=== PATIENT | female | born 1990 | race American Indian/Alaskan Native ===

== ENCOUNTER 2018-03-19 12:37 | Emergency (ER) | payer SELFPAY ==
[2018-03-19 13:44] VITALS: BP 127/79
[2018-03-19 16:50] LABS: HCG Qualitative,Urine Negative (Negative)
== END 2018-03-19 15:00 | disposition left against medical advice (07) ==
LOC: ED 12:37
DX: Z04.1 Encounter for examination and observation following transport accident (principal); Z53.21 Procedure and treatment not carried out due to patient leaving prior to being seen by health care provider; V89.2XXA Person injured in unspecified motor-vehicle accident, traffic, initial encounter; Y93.89 Activity, other specified; Y99.8 Other external cause status; Y92.410 Unspecified street and highway as the place of occurrence of the external cause
CPT/HCPCS: 81025